=== PATIENT | female | born 1960 | race Hispanic/Latino ===

== ENCOUNTER 2023-01-24 15:22 | Emergency (ER) | payer BC ==
[~2023-01-24] VITALS: Ht 167.6 cm; Wt 117.9 kg
[2023-01-24] MEDS ORDERED: NAPR-1196 PO (16:36)
[2023-01-24 17:35] VITALS: BP 145/78; PULSE 78; RESP 18; O2SAT 98
== END 2023-01-24 17:40 | disposition home or self-care (01) ==
LOC: EDH 15:22
DX: S80.01XA Contusion of right knee, initial encounter (principal); I10 Essential (primary) hypertension; K21.9 Gastro-esophageal reflux disease without esophagitis; Z85.3 Personal history of malignant neoplasm of breast; W18.39XA Other fall on same level, initial encounter; Y93.89 Activity, other specified; Y92.89 Other specified places as the place of occurrence of the external cause; Y99.8 Other external cause status
CPT/HCPCS: 70450; 72125; 73070; 73562

== ENCOUNTER 2023-05-11 11:57 | Emergency (ER) | payer BC ==
[~2023-05-11] VITALS: Ht 165.1 cm; Wt 113.4 kg
[~2023-05-11 11:57] MED LIST: NAPR-1196 PO
[2023-05-11 12:18] LABS: RAPID GROUP A STREP negative (NEGATIVE)
[2023-05-11 12:22] LABS: SARS-CoV-2, RNA, NAAT NEGATIVE SARS CoV-2 (NEGATIVE)
[2023-05-11 12:27] LABS: INFLUENZA TYPE A Negative For Type A (NEGATIVE); INFLUENZA TYPE B Negative For Type B (NEGATIVE)
[2023-05-11 12:58] VITALS: BP 134/53; PULSE 87; RESP 14; O2SAT 99
[2023-05-11] MEDS ORDERED: AMOX1TAB16 PO (13:28)
[2023-05-11] MEDS ORDERED: BENZ-39 PO (13:28)
== END 2023-05-11 13:35 | disposition home or self-care (01) ==
LOC: EDH 11:57
DX: J02.9 Acute pharyngitis, unspecified (principal); R50.9 Fever, unspecified; E11.9 Type 2 diabetes mellitus without complications; E78.00 Pure hypercholesterolemia, unspecified; I10 Essential (primary) hypertension; Z20.822 Contact with and (suspected) exposure to COVID-19
CPT/HCPCS: 99283; 87635; 87880; 87804 ×2; C9803

== ENCOUNTER 2023-11-02 22:26 | Inpatient (IN) | payer BC, OTHER ==
[~2023-11-02] VITALS: Ht 167.6 cm; Wt 107.4 kg
[~2023-11-02 22:26] MED LIST changes: +ACET-2079 PO; +AMLO2.5T4 PO; +BENZ-39 PO; +CLIN-141 PO; +COLL30OI TP; +GENT30OI2 TP; +LOSA1TAB54 PO; +MONT-39 PO; +OMEP40CA21 PO; +[UNRECOGNIZED DRUG - CODE] IV
[2023-11-02 23:04] LABS: BASOPHILS # (AUTO) 0.03 K/uL (0.00-0.20); BASOPHILS % (AUTO) 0.2 % (0.0-5.0); EOSINOPHILS # (AUTO) 0.01 K/uL (0.00-0.70); EOSINOPHILS % (AUTO) 0.1 % (0.0-8.0); HEMATOCRIT 38.5 % (36-48); IMMATURE GRANULOCYTE ABSOLUTE 0.19 K/uL (0-1); LYMPHOCYTES # (AUTO) 0.7 K/uL (1.0-4.8); LYMPHOCYTES % (AUTO) 4.4 % (21.0-51.0); MEAN CORPUSCULAR HEMOGLOBIN 29.9 pg (27.0-33.0); MEAN CORPUSCULAR VOLUME 90.6 fL (79-99); MONOCYTES # (AUTO) 0.7 K/uL (0.1-1.0); MONOCYTES % (AUTO) 4.1 % (3.0-13.0); NEUTROPHILS # (AUTO) 15.2 K/uL (1.8-7.7); NEUTROPHILS % (AUTO) 90.1 % (40.0-77.0); PLATELET COUNT (AUTO) 212 K/uL (130-400); RED BLOOD CELL COUNT(AUTO) 4.25 MIL/uL (4.00-5.50); RED CELL DISTRIBUTION WIDTH 15.9 % (11.0-15.5); WHITE BLOOD COUNT (AUTO) 16.9 K/uL (4.8-10.8)
[2023-11-02 23:05] LABS: APPEARANCE,URINE CLOUDY (CLEAR); BILIRUBIN,URINE NEGATIVE (NEGATIVE); COLOR,URINE YELLOW (YELLOW); GLUCOSE, URINE (UA) NEGATIVE (NEGATIVE); KETONES,URINE NEGATIVE (NEGATIVE); LEUKOCYTE ESTERASE ,URINE 250 Leu/uL (NEGATIVE); NITRATE,URINE NEGATIVE (NEGATIVE); OCCULT BLOOD,URINE NEGATIVE (NEGATIVE); PH,URINE 5.5 (5.0-8.0); PROTEIN,URINE 30 mg/dL (NEGATIVE); UROBILINOGEN,URINE 0.2 mg/dL (0.2-1.0)
[2023-11-02 23:06] LABS: ADD UA MICROSCOPIC YES
[2023-11-02 23:12] LABS: BACTERIA,URINE MANY /HPF (None Seen); MUCUS,URINE RARE LPF (None Seen); OTHER CASTS, URINE 3 /LPF (None Seen); RBC,URINE 0-1 /HPF (0-1); SQUAMOUS EPITHELIAL CELL,UR RARE /HPF (0-2); WBC,URINE 26-50 /HPF (0-1)
[2023-11-02] MEDS: 0.9%NACL 1000ML 1,779 ML IV ONE (23:17)
[2023-11-02 23:18] LABS: CREATININE 1.7 mg/dL (0.5-1.0); POTASSIUM 3.2 mmol/L (3.5-5.1)
[2023-11-02 23:23] LABS: ALBUMIN 3.2 g/dL (3.5-5.0); BILIRUBIN,TOTAL 0.4 mg/dL (0.2-1.0); TOTAL PROTEIN, SERUM 6.8 g/dL (6.0-8.3)
[2023-11-02 23:36] LABS: B-TYPE NATRIURETIC PEPTIDE 45 pg/mL (0-100); INR <= 0.93 (0.85-1.15); PROTHROMBIN TIME 10.9 SEC (9.6-11.6)
[2023-11-02 23:37] LABS: PARTIAL THROMBOPLASTIN TIME 26.9 SEC (26.3-35.5)
[2023-11-03] VITALS (7 sets, daily range): BP systolic 138–153; BP diastolic 60–75; PULSE 67–87; RESP 16–19; O2SAT 100
[2023-11-03] MEDS: IBUPROFEN 200 MG TAB ONE (00:01)
[2023-11-03] MEDS: IBUPROFEN 400 MG TABLET ONE (00:01)
[2023-11-03] MEDS: IBUPROFEN 600 MG TABLET PO ONE (00:02)
[2023-11-03] MEDS: ONDANSETRON 4MG INJ IVP PRN (00:27)
[2023-11-03] MEDS: MORPHINE 4 MG SYG IVP PRN (00:28)
[2023-11-03] MEDS ORDERED: ACETAMINOPHEN 325 MG TAB PO PRN (00:30)
[2023-11-03] MEDS ORDERED: POTASSIUM CHLORIDE 10% ELIXIR 20 MEQ/15 ML UDCUP PO PRN (00:30)
[2023-11-03] MEDS ORDERED: POTASSIUM CHLORIDE 20MEQ/100ML 100 ML IV PRN (00:30)
[2023-11-03] MEDS ORDERED: VANCOMYCIN PROTOCOL PER PHARMACY IV PRN (00:30)
[2023-11-03] MEDS: HEPARIN 25,000 UNITS/250ML D5W 250 ML IV SCH (01:01)
[2023-11-03] MEDS: HEPARIN 5,000 UNIT VIAL ONE (01:04)
[2023-11-03] MEDS: CEFEPIME HCL 2 GM VIAL IVPB SCH (01:06)
[2023-11-03 01:36] LABS: CREATININE,URINE RANDOM 216.21 mg/dL (30-135)
[2023-11-03] MEDS: VANCOMYCIN 1G/250ML KIT 250 ML IV ONE (01:45)
[2023-11-03] MEDS: KCL 20 MEQ ERTAB PO PRN (03:44)
[2023-11-03 04:26] LABS: BASOPHILS # (AUTO) 0.02 K/uL (0.00-0.20); BASOPHILS % (AUTO) 0.1 % (0.0-5.0); EOSINOPHILS # (AUTO) 0.01 K/uL (0.00-0.70); EOSINOPHILS % (AUTO) 0.1 % (0.0-8.0); HEMATOCRIT 31.9 % (36-48); IMMATURE GRANULOCYTE ABSOLUTE 0.21 K/uL (0-1); LYMPHOCYTES # (AUTO) 1.2 K/uL (1.0-4.8); LYMPHOCYTES % (AUTO) 7.5 % (21.0-51.0); MEAN CORPUSCULAR HEMOGLOBIN 29.3 pg (27.0-33.0); MEAN CORPUSCULAR HGB CONC 33.2 g/dL (32.0-36.0); MEAN CORPUSCULAR VOLUME 88.1 fL (79-99); MONOCYTES # (AUTO) 1.5 K/uL (0.1-1.0); MONOCYTES % (AUTO) 9.3 % (3.0-13.0); NEUTROPHILS # (AUTO) 12.9 K/uL (1.8-7.7); NEUTROPHILS % (AUTO) 81.7 % (40.0-77.0); PLATELET COUNT (AUTO) 186 K/uL (130-400); RED BLOOD CELL COUNT(AUTO) 3.62 MIL/uL (4.00-5.50); RED CELL DISTRIBUTION WIDTH 15.8 % (11.0-15.5); WHITE BLOOD COUNT (AUTO) 15.8 K/uL (4.8-10.8)
[2023-11-03] MEDS: LACTATED RINGERS 1000ML 1,000 ML IV SCH (04:27)
[2023-11-03 04:42] LABS: MAGNESIUM 1.7 mg/dL (1.80-2.40); PHOSPHORUS 3.2 mg/dL (2.5-4.9)
[2023-11-03 04:48] LABS: HEMOGLOBIN A1C 6.9 % (4.0-6.0)
[2023-11-03 04:49] LABS: POTASSIUM 2.8 mmol/L (3.5-5.1)
[2023-11-03] MEDS: INSULIN HUMULIN R 100 UNIT/ML 3ML SQ SCH (05:37)
[2023-11-03] MEDS: MAGNESIUM 2GM PREMIX 50ML 50 ML IV PRN (06:01)
[2023-11-03] MEDS: HYDROCODONE/ACETAMINOPHEN 10/325 MG TAB PO PRN (13:12)
[2023-11-03] MEDS ORDERED: VANCOMYCIN 1G/250ML KIT 250 ML IV SCH (14:00)
[2023-11-03] MEDS: VANCOMYCIN 1G/250ML KIT 250 ML IV SCH (21:49)
[2023-11-03] MEDS: ACETAMINOPHEN WITH CODEINE 1 TAB TAB PO PRN (21:52)
[2023-11-04] VITALS (8 sets, daily range): BP systolic 88–168; BP diastolic 50–79; PULSE 69–103; RESP 17–19; O2SAT 96–97
[2023-11-04 06:16] LABS: BASOPHILS # (AUTO) 0.05 K/uL (0.00-0.20); BASOPHILS % (AUTO) 0.4 % (0.0-5.0); EOSINOPHILS # (AUTO) 0.11 K/uL (0.00-0.70); EOSINOPHILS % (AUTO) 0.9 % (0.0-8.0); HEMATOCRIT 35.7 % (36-48); IMMATURE GRANULOCYTE ABSOLUTE 0.15 K/uL (0-1); LYMPHOCYTES # (AUTO) 2.4 K/uL (1.0-4.8); LYMPHOCYTES % (AUTO) 19.8 % (21.0-51.0); MEAN CORPUSCULAR HEMOGLOBIN 29.4 pg (27.0-33.0); MEAN CORPUSCULAR HGB CONC 32.2 g/dL (32.0-36.0); MEAN CORPUSCULAR VOLUME 91.3 fL (79-99); MONOCYTES # (AUTO) 0.8 K/uL (0.1-1.0); MONOCYTES % (AUTO) 6.5 % (3.0-13.0); NEUTROPHILS # (AUTO) 8.6 K/uL (1.8-7.7); NEUTROPHILS % (AUTO) 71.2 % (40.0-77.0); PLATELET COUNT (AUTO) 161 K/uL (130-400); RED BLOOD CELL COUNT(AUTO) 3.91 MIL/uL (4.00-5.50); WHITE BLOOD COUNT (AUTO) 12.1 K/uL (4.8-10.8)
[2023-11-04 06:29] LABS: BILIRUBIN,TOTAL 0.5 mg/dL (0.2-1.0); POTASSIUM 3.4 mmol/L (3.5-5.1); TOTAL PROTEIN, SERUM 5.8 g/dL (6.0-8.3)
[2023-11-04 06:39] LABS: ALBUMIN 2.6 g/dL (3.5-5.0)
[2023-11-04] MEDS: LOSARTAN/HYDROCHLOROTHIAZIDE 50-12.5MG TABLET PO SCH (08:50)
[2023-11-04] MEDS: PANTOPRAZOLE 40 MG TAB DR PO SCH (08:50)
[2023-11-04] MEDS: AMLODIPINE 2.5 MG TAB PO SCH (08:50)
[2023-11-04] MEDS: HONEY 1 APPL/ML TUBE TP SCH (08:51)
[2023-11-04] MEDS ORDERED: PHARMACY COMMUNICATION MISC SCH (09:00)
[2023-11-04] MEDS: KCL 20 MEQ ERTAB PO ONE ×2 (09:03→20:38)
[2023-11-04] MEDS ORDERED: COMPOUND IV MISC 1 EACH IVSOLN MISC PRN (09:30)
[2023-11-04] MEDS ORDERED: MEROPENEM 1 GM in 0.9%NACL 100ML IVPB SCH (10:00)
[2023-11-04] MEDS: 0.9%NACL 1000ML 1,000 ML IV ONE (11:50)
[2023-11-04 13:50] LABS: INR 0.97 (0.85-1.15); PROTHROMBIN TIME 11.5 SEC (9.6-11.6)
[2023-11-04] MEDS: MEROPENEM 1 GM in 0.9%NACL 100ML IVPB SCH (18:58)
[2023-11-04 20:10] LABS: SARS-CoV-2, RNA, NAAT NEGATIVE SARS CoV-2 (NEGATIVE)
[2023-11-04 20:16] LABS: INFLUENZA TYPE A Negative For Type A (NEGATIVE); INFLUENZA TYPE B Negative For Type B (NEGATIVE)
[2023-11-04] MEDS: ACETAMINOPHEN 325 MG TAB PO PRN (23:14)
[2023-11-05] VITALS (10 sets, daily range): BP systolic 100–152; BP diastolic 52–72; PULSE 78–100; RESP 16–20; TEMP 99.7; O2SAT 96
[2023-11-05 05:51] LABS: BASOPHILS # (AUTO) 0.01 K/uL (0.00-0.20); BASOPHILS % (AUTO) 0.1 % (0.0-5.0); IMMATURE GRANULOCYTE ABSOLUTE 0.08 K/uL (0-1); LYMPHOCYTES # (AUTO) 1.9 K/uL (1.0-4.8); LYMPHOCYTES % (AUTO) 19.2 % (21.0-51.0); MEAN CORPUSCULAR HEMOGLOBIN 29.1 pg (27.0-33.0); MEAN CORPUSCULAR HGB CONC 31.9 g/dL (32.0-36.0); MEAN CORPUSCULAR VOLUME 91.2 fL (79-99); MONOCYTES # (AUTO) 0.7 K/uL (0.1-1.0); MONOCYTES % (AUTO) 7.3 % (3.0-13.0); NEUTROPHILS % (AUTO) 70.6 % (40.0-77.0); PLATELET COUNT (AUTO) 149 K/uL (130-400); RED BLOOD CELL COUNT(AUTO) 3.51 MIL/uL (4.00-5.50); RED CELL DISTRIBUTION WIDTH 16.2 % (11.0-15.5); WHITE BLOOD COUNT (AUTO) 9.9 K/uL (4.8-10.8)
[2023-11-05 06:08] LABS: ALBUMIN 2.2 g/dL (3.5-5.0); BILIRUBIN,TOTAL 0.7 mg/dL (0.2-1.0); CREATININE 0.8 mg/dL (0.5-1.0); MAGNESIUM 1.7 mg/dL (1.80-2.40); POTASSIUM 3.8 mmol/L (3.5-5.1); TOTAL PROTEIN, SERUM 5.3 g/dL (6.0-8.3)
[2023-11-05] MEDS ORDERED: MAGNESIUM 2GM PREMIX 50ML 50 ML IV SCH (09:00)
[2023-11-05] MEDS: HYDROMORPHONE 0.5 MG SYG (0.5MG/0.5ML) IVP ONE (09:01)
[2023-11-05] MEDS: MAGNESIUM OXIDE 400 MG TABLET PO ONE (11:31)
[2023-11-05] MEDS: APIXABAN 5 MG TABLET PO SCH (11:32)
[2023-11-05] MEDS: MEROPENEM 1 GM in 0.9%NACL 100ML IVPB SCH (22:03)
[2023-11-06] VITALS (7 sets, daily range): BP systolic 116–135; BP diastolic 58–89; PULSE 87–110; RESP 16–19; O2SAT 96–97
[2023-11-06 05:42] LABS: BASOPHILS # (AUTO) 0.01 K/uL (0.00-0.20); BASOPHILS % (AUTO) 0.1 % (0.0-5.0); EOSINOPHILS # (AUTO) 0.11 K/uL (0.00-0.70); HEMATOCRIT 32.1 % (36-48); IMMATURE GRANULOCYTE ABSOLUTE 0.07 K/uL (0-1); LYMPHOCYTES # (AUTO) 1.7 K/uL (1.0-4.8); LYMPHOCYTES % (AUTO) 15.2 % (21.0-51.0); MEAN CORPUSCULAR HEMOGLOBIN 29.2 pg (27.0-33.0); MEAN CORPUSCULAR HGB CONC 32.1 g/dL (32.0-36.0); MEAN CORPUSCULAR VOLUME 90.9 fL (79-99); MONOCYTES # (AUTO) 0.8 K/uL (0.1-1.0); MONOCYTES % (AUTO) 7.1 % (3.0-13.0); NEUTROPHILS # (AUTO) 8.4 K/uL (1.8-7.7); PLATELET COUNT (AUTO) 130 K/uL (130-400); RED BLOOD CELL COUNT(AUTO) 3.53 MIL/uL (4.00-5.50); RED CELL DISTRIBUTION WIDTH 15.9 % (11.0-15.5)
[2023-11-06 06:03] LABS: BILIRUBIN,TOTAL 0.8 mg/dL (0.2-1.0); CREATININE 0.7 mg/dL (0.5-1.0); MAGNESIUM 1.6 mg/dL (1.80-2.40); POTASSIUM 3.7 mmol/L (3.5-5.1); TOTAL PROTEIN, SERUM 5.1 g/dL (6.0-8.3)
[2023-11-06] MEDS ORDERED: LACTULOSE 20 GM/30 ML UDCUP PO PRN (10:30)
[2023-11-06] MEDS: POLYETHYLENE GLYCOL 3350 17 GM POWD.PACK PO PRN (15:59)
[2023-11-06] MEDS: FLUCONAZOLE 100 MG TAB PO SCH (17:49)
[2023-11-07] VITALS (7 sets, daily range): BP systolic 111–139; BP diastolic 56–68; PULSE 18–105; RESP 17–18; O2SAT 95
[2023-11-07 06:11] LABS: BASOPHILS # (AUTO) 0.01 K/uL (0.00-0.20); BASOPHILS % (AUTO) 0.1 % (0.0-5.0); EOSINOPHILS # (AUTO) 0.11 K/uL (0.00-0.70); EOSINOPHILS % (AUTO) 1.4 % (0.0-8.0); HEMATOCRIT 31.5 % (36-48); IMMATURE GRANULOCYTE ABSOLUTE 0.04 K/uL (0-1); LYMPHOCYTES # (AUTO) 1.2 K/uL (1.0-4.8); LYMPHOCYTES % (AUTO) 15.7 % (21.0-51.0); MEAN CORPUSCULAR HEMOGLOBIN 28.8 pg (27.0-33.0); MEAN CORPUSCULAR HGB CONC 30.8 g/dL (32.0-36.0); MEAN CORPUSCULAR VOLUME 93.5 fL (79-99); MONOCYTES # (AUTO) 0.5 K/uL (0.1-1.0); MONOCYTES % (AUTO) 6.9 % (3.0-13.0); NEUTROPHILS # (AUTO) 5.9 K/uL (1.8-7.7); NEUTROPHILS % (AUTO) 75.4 % (40.0-77.0); PLATELET COUNT (AUTO) 133 K/uL (130-400); RED BLOOD CELL COUNT(AUTO) 3.37 MIL/uL (4.00-5.50); RED CELL DISTRIBUTION WIDTH 15.7 % (11.0-15.5); WHITE BLOOD COUNT (AUTO) 7.9 K/uL (4.8-10.8)
[2023-11-07 06:24] LABS: ALBUMIN 1.8 g/dL (3.5-5.0); BILIRUBIN,TOTAL 0.9 mg/dL (0.2-1.0); CREATININE 0.6 mg/dL (0.5-1.0); MAGNESIUM 1.8 mg/dL (1.80-2.40); POTASSIUM 3.5 mmol/L (3.5-5.1)
[2023-11-07] MEDS: KCL 20 MEQ ERTAB PO SCH (08:47)
[2023-11-07] MEDS: DOCUSATE SODIUM 100 MG CAP PO ONE (08:48)
[2023-11-07] MEDS: HYDROMORPHONE 0.5 MG SYG (0.5MG/0.5ML) IVP PRN (16:42)
[2023-11-08] VITALS (8 sets, daily range): BP systolic 87–125; BP diastolic 42–63; PULSE 80–99; RESP 16–18; O2SAT 96
[2023-11-08 09:17] LABS: BASOPHILS # (AUTO) 0.02 K/uL (0.00-0.20); BASOPHILS % (AUTO) 0.2 % (0.0-5.0); EOSINOPHILS # (AUTO) 0.11 K/uL (0.00-0.70); EOSINOPHILS % (AUTO) 1.1 % (0.0-8.0); HEMATOCRIT 30.8 % (36-48); IMMATURE GRANULOCYTE ABSOLUTE 0.07 K/uL (0-1); LYMPHOCYTES # (AUTO) 1.3 K/uL (1.0-4.8); MEAN CORPUSCULAR HEMOGLOBIN 28.9 pg (27.0-33.0); MEAN CORPUSCULAR HGB CONC 32.8 g/dL (32.0-36.0); MEAN CORPUSCULAR VOLUME 88.3 fL (79-99); MONOCYTES # (AUTO) 0.7 K/uL (0.1-1.0); MONOCYTES % (AUTO) 7.1 % (3.0-13.0); NEUTROPHILS # (AUTO) 7.9 K/uL (1.8-7.7); NEUTROPHILS % (AUTO) 77.9 % (40.0-77.0); PLATELET COUNT (AUTO) 213 K/uL (130-400); RED BLOOD CELL COUNT(AUTO) 3.49 MIL/uL (4.00-5.50); RED CELL DISTRIBUTION WIDTH 15.7 % (11.0-15.5); WHITE BLOOD COUNT (AUTO) 10.1 K/uL (4.8-10.8)
[2023-11-08 09:31] LABS: ALBUMIN 1.9 g/dL (3.5-5.0); BILIRUBIN,TOTAL 1.1 mg/dL (0.2-1.0); CREATININE 0.9 mg/dL (0.5-1.0); MAGNESIUM 1.9 mg/dL (1.80-2.40); POTASSIUM 3.9 mmol/L (3.5-5.1); TOTAL PROTEIN, SERUM 5.5 g/dL (6.0-8.3)
[2023-11-08] MEDS ORDERED: VANCOMYCIN PROTOCOL PER PHARMACY IV SCH (12:00)
[2023-11-08] MEDS: VANCOMYCIN 2GM/500 ML BAG 500 ML IV ONE (12:39)
[2023-11-08] MEDS: VANCOMYCIN 1G/250ML KIT 250 ML IV SCH (23:59)
[2023-11-09] VITALS (8 sets, daily range): BP systolic 95–145; BP diastolic 47–70; PULSE 83–104; RESP 16–20; O2SAT 97–99
[2023-11-09 05:09] LABS: HEMATOCRIT 28.8 % (36-48); MEAN CORPUSCULAR HEMOGLOBIN 29.6 pg (27.0-33.0); MEAN CORPUSCULAR HGB CONC 32.6 g/dL (32.0-36.0); MEAN CORPUSCULAR VOLUME 90.6 fL (79-99); RED BLOOD CELL COUNT(AUTO) 3.18 MIL/uL (4.00-5.50); RED CELL DISTRIBUTION WIDTH 15.4 % (11.0-15.5); WHITE BLOOD COUNT (AUTO) 8.3 K/uL (4.8-10.8)
[2023-11-09 05:12] LABS: CREATININE 0.8 mg/dL (0.5-1.0); POTASSIUM 3.8 mmol/L (3.5-5.1)
[2023-11-10] VITALS (8 sets, daily range): BP systolic 104–139; BP diastolic 44–64; PULSE 65–99; RESP 18–20; O2SAT 95–97
[2023-11-10 06:00] LABS: HEMATOCRIT 29.6 % (36-48); MEAN CORPUSCULAR HGB CONC 32.4 g/dL (32.0-36.0); MEAN CORPUSCULAR VOLUME 89.4 fL (79-99); RED BLOOD CELL COUNT(AUTO) 3.31 MIL/uL (4.00-5.50); RED CELL DISTRIBUTION WIDTH 15.5 % (11.0-15.5); WHITE BLOOD COUNT (AUTO) 8.4 K/uL (4.8-10.8)
[2023-11-10 06:19] LABS: CREATININE 0.9 mg/dL (0.5-1.0); POTASSIUM 3.8 mmol/L (3.5-5.1)
[2023-11-10] MEDS: GABAPENTIN 100 MG CAPSULE PO SCH (13:06)
[2023-11-10] MEDS: NYSTATIN 15 GM POWDER TP SCH (20:21)
[2023-11-11] VITALS (8 sets, daily range): BP systolic 108–141; BP diastolic 44–66; PULSE 58–101; RESP 17–20; O2SAT 97–99
[2023-11-11 05:23] LABS: BASOPHILS # (AUTO) 0.03 K/uL (0.00-0.20); BASOPHILS % (AUTO) 0.4 % (0.0-5.0); EOSINOPHILS # (AUTO) 0.25 K/uL (0.00-0.70); LYMPHOCYTES # (AUTO) 1.9 K/uL (1.0-4.8); LYMPHOCYTES % (AUTO) 22.7 % (21.0-51.0); MEAN CORPUSCULAR HEMOGLOBIN 29.6 pg (27.0-33.0); MEAN CORPUSCULAR HGB CONC 32.4 g/dL (32.0-36.0); MEAN CORPUSCULAR VOLUME 91.2 fL (79-99); MONOCYTES # (AUTO) 0.8 K/uL (0.1-1.0); MONOCYTES % (AUTO) 9.3 % (3.0-13.0); NEUTROPHILS # (AUTO) 5.3 K/uL (1.8-7.7); NEUTROPHILS % (AUTO) 63.4 % (40.0-77.0); PLATELET COUNT (AUTO) 293 K/uL (130-400); RED BLOOD CELL COUNT(AUTO) 3.18 MIL/uL (4.00-5.50); RED CELL DISTRIBUTION WIDTH 15.4 % (11.0-15.5); WHITE BLOOD COUNT (AUTO) 8.3 K/uL (4.8-10.8)
[2023-11-11 06:47] LABS: ALBUMIN 1.8 g/dL (3.5-5.0); BILIRUBIN,TOTAL 0.8 mg/dL (0.2-1.0); CREATININE 0.9 mg/dL (0.5-1.0); POTASSIUM 4.3 mmol/L (3.5-5.1); TOTAL PROTEIN, SERUM 5.7 g/dL (6.0-8.3); VANCOMYCIN TROUGH 11.5 UG/ML (10.0-20.0)
[2023-11-11] MEDS: VANCOMYCIN 1.5 GM/250 ML BAG 250 ML IV SCH (08:58)
[2023-11-11] MEDS: HYDROXYZINE 25 MG TABLET PO PRN (17:38)
[2023-11-12] VITALS (7 sets, daily range): BP systolic 93–129; BP diastolic 34–59; PULSE 82–110; RESP 18–20; O2SAT 97
[2023-11-12 04:35] LABS: HEMATOCRIT 27.9 % (36-48); MEAN CORPUSCULAR HEMOGLOBIN 28.8 pg (27.0-33.0); MEAN CORPUSCULAR HGB CONC 32.3 g/dL (32.0-36.0); MEAN CORPUSCULAR VOLUME 89.1 fL (79-99); RED BLOOD CELL COUNT(AUTO) 3.13 MIL/uL (4.00-5.50); RED CELL DISTRIBUTION WIDTH 15.6 % (11.0-15.5); WHITE BLOOD COUNT (AUTO) 8.5 K/uL (4.8-10.8)
[2023-11-12 05:06] LABS: POTASSIUM 4.2 mmol/L (3.5-5.1)
[2023-11-12 14:58] LABS: INR 1.46 (0.85-1.15); PROTHROMBIN TIME 15.2 SEC (9.6-11.6)
[2023-11-12] MEDS: HYDROMORPHONE 0.5 MG SYG (0.5MG/0.5ML) IVP PRN (18:36)
[2023-11-12] MEDS: 0.9%NACL 10ML VIAL IV SCH (21:11)
[2023-11-13 04:00] VITALS: BP 96/51; PULSE 102; RESP 20
[2023-11-13 08:00] VITALS: BP 95/42; PULSE 98; RESP 18
[2023-11-13 08:15] VITALS: O2SAT 96
[2023-11-13 12:00] VITALS: BP 123/47; PULSE 96; RESP 20
[2023-11-13] MEDS: DEXAMETHASONE SOD PHOSPHATE 4 MG/ML 1ML VIAL IV ONE (13:49)
[2023-11-13] MEDS: VANCOMYCIN 1.25 GM/250 ML BAG 250 ML IV SCH (15:00)
[2023-11-13 16:00] VITALS: BP 116/65; PULSE 94; RESP 20
[2023-11-13] MEDS: APIXABAN 5 MG TABLET PO ONE (17:12)
[2023-11-13] MEDS ORDERED: APIXABAN 5 MG TABLET PO SCH (21:00)
[2023-11-14] MEDS ORDERED: DEXAMETHASONE SOD PHOSPHATE 4 MG/ML 1ML VIAL IV SCH (09:00)
== END 2023-11-13 19:23 | DRG 872 ==
LOC: EDH 22:26 → EDHIP 23:57 → 3BH 11-03 02:03
PROVIDERS: ADMIT Internal Medicine; ATTEND Internal Medicine
PROC: 05HY33Z Insertion of Infusion Device into Upper Vein, Percutaneous Approach (ICD-10-PCS; principal; 2023-11-06)
DX: A41.9 Sepsis, unspecified organism (principal); E87.20 Acidosis, unspecified; L03.116 Cellulitis of left lower limb; N17.9 Acute kidney failure, unspecified; N39.0 Urinary tract infection, site not specified; B37.0 Candidal stomatitis; Z16.24 Resistance to multiple antibiotics; L88 Pyoderma gangrenosum; I82.412 Acute embolism and thrombosis of left femoral vein; D68.69 Other thrombophilia; L97.918 Non-pressure chronic ulcer of unspecified part of right lower leg with other specified severity; L97.928 Non-pressure chronic ulcer of unspecified part of left lower leg with other specified severity; I82.432 Acute embolism and thrombosis of left popliteal vein; R65.20 Severe sepsis without septic shock; B95.1 Streptococcus, group B, as the cause of diseases classified elsewhere; B96.89 Other specified bacterial agents as the cause of diseases classified elsewhere; Z20.822 Contact with and (suspected) exposure to COVID-19; C50.919 Malignant neoplasm of unspecified site of unspecified female breast; E66.01 Morbid (severe) obesity due to excess calories; E87.6 Hypokalemia; I10 Essential (primary) hypertension; I25.10 Atherosclerotic heart disease of native coronary artery without angina pectoris; N28.9 Disorder of kidney and ureter, unspecified; E11.51 Type 2 diabetes mellitus with diabetic peripheral angiopathy without gangrene; K21.9 Gastro-esophageal reflux disease without esophagitis; E11.65 Type 2 diabetes mellitus with hyperglycemia; Z79.01 Long term (current) use of anticoagulants; Z82.49 Family history of ischemic heart disease and other diseases of the circulatory system; Z79.899 Other long term (current) drug therapy; Z51.5 Encounter for palliative care; Z83.3 Family history of diabetes mellitus; Z85.3 Personal history of malignant neoplasm of breast; Z90.12 Acquired absence of left breast and nipple
CPT/HCPCS: 36415; 71045; 80048; 80053; 80202; 81001; 82570; 82948; 83036; 83605; 83735; 83880; 83935; 84100; 84145; 84300; 84484; 85025; 85027; 85610; 85730; 87040; 87070; 87076; 87077; 87088; 87186; 87635; 87804; 93005; 93925; 93971; 96375; C1894; G0378; J0692; J1100; J1170; J1644; J2185; J2270; J2405; J3370; J3475; J7030; J7120; 3370; A6260; C1750

== ENCOUNTER 2024-02-26 14:21 | Emergency (ER) | payer BC, OTHER ==
[~2024-02-26] VITALS: Ht 167.6 cm; Wt 104.8 kg
[~2024-02-26 14:21] MED LIST changes: -BENZ-39 PO; -CLIN-141 PO; -NAPR-1196 PO; -[UNRECOGNIZED DRUG - CODE] IV
[2024-02-26 14:47] VITALS: BP 131/58; PULSE 72; RESP 16; TEMP 98.3; O2SAT 98
== END 2024-02-26 15:20 | disposition home or self-care (01) ==
LOC: EDH 14:21
DX: L76.22 Postprocedural hemorrhage of skin and subcutaneous tissue following other procedure (principal); I10 Essential (primary) hypertension; K21.9 Gastro-esophageal reflux disease without esophagitis; Z79.899 Other long term (current) drug therapy; Z88.8 Allergy status to other drugs, medicaments and biological substances; Z91.041 Radiographic dye allergy status
CPT/HCPCS: 99281